=== PATIENT | female | born 1945 | race Caucasian/White ===

== ENCOUNTER → 2016-09-25 | Outpatient (CLI) | payer BC | END | disposition home or self-care (01) | LOC: PCVCIMAG 07:58 | PROVIDERS: ATTEND Internal Medicine | DX: I44.7 Left bundle-branch block, unspecified (principal); I08.2 Rheumatic disorders of both aortic and tricuspid valves; R55 Syncope and collapse | CPT/HCPCS: 93306 ==

== ENCOUNTER → 2017-02-02 | Outpatient (CLI) | payer BC | END | disposition home or self-care (01) | LOC: PCVCCLINIC 11:44 | PROVIDERS: ATTEND Internal Medicine | DX: I44.2 Atrioventricular block, complete (principal); E78.5 Hyperlipidemia, unspecified; I44.7 Left bundle-branch block, unspecified; I10 Essential (primary) hypertension; Z95.0 Presence of cardiac pacemaker; M81.0 Age-related osteoporosis without current pathological fracture; K21.9 Gastro-esophageal reflux disease without esophagitis; M19.90 Unspecified osteoarthritis, unspecified site; Z79.82 Long term (current) use of aspirin; Z79.899 Other long term (current) drug therapy; Z96.653 Presence of artificial knee joint, bilateral; Z88.2 Allergy status to sulfonamides; Z88.8 Allergy status to other drugs, medicaments and biological substances | CPT/HCPCS: 80061; 93005; G0463 ==

== ENCOUNTER → 2017-08-04 | Outpatient (CLI) | payer BC | END | disposition home or self-care (01) | LOC: PCVCIMAG 09:05 | DX: I10 Essential (primary) hypertension (principal); I44.7 Left bundle-branch block, unspecified; I44.2 Atrioventricular block, complete; E78.5 Hyperlipidemia, unspecified; Z95.0 Presence of cardiac pacemaker; Z79.899 Other long term (current) drug therapy; Z79.82 Long term (current) use of aspirin | CPT/HCPCS: 93005; 93306; G0463 ==

== ENCOUNTER → 2018-08-11 | Outpatient (CLI) | payer BC | END | disposition home or self-care (01) | LOC: PCVCCLINIC 11:03 | PROVIDERS: ATTEND Internal Medicine | DX: I44.2 Atrioventricular block, complete (principal); E78.5 Hyperlipidemia, unspecified; I44.7 Left bundle-branch block, unspecified; I10 Essential (primary) hypertension; C43.62 Malignant melanoma of left upper limb, including shoulder; Z95.0 Presence of cardiac pacemaker; Z88.1 Allergy status to other antibiotic agents; Z88.2 Allergy status to sulfonamides | CPT/HCPCS: 36415; 80061; 93005; 93280; G0463 ==

== ENCOUNTER → 2019-02-16 | Outpatient (CLI) | payer BC ==
--- NOTE | 2019-02-16 09:48 | PCVCIMAG ---
APPROVED REPORT Study performed: 02/16/2019 08:46:18 EXAM: Comprehensive 2D, Doppler, and color-flow Echocardiogram Patient Location: Echo lab Room #: 2Status: routine BSA: 1.87 HR: 65 bpmBP: 128/62 mmHg Rhythm: Pacemaker Other Information Study Quality: Good Risk Factors: Cardiac Risk Factors: HTN, Hyperlipidemia Indications Pacemaker Hypertension/HDD Complete heart block 2D Dimensions IVSd: 9.19 (7-11mm)LVOT Diam: 17.10 (18-24mm) LVDd: 42.44 mm PWd: 7.45 (7-11mm)Ascending Ao: 25.09 (22-36mm) LVDs: 21.79 (25-40mm) Left Atrium: 30.40 (27-40mm) Aortic Root: 22.26 mm LV Single Plane 4CH: 54.71 % LV Single Plane 2CH: 61.47 % Biplane EF: 57.7 % Volumes Left Atrial Volume (Systole) Single Plane 4CH: 40.72 mLSingle Plane 2CH: 58.53 mL Biplane LA Volume: 49.00 mLLA ESV Index: 26.00 mL/m2 Aortic Valve AoV Peak Ivan.: 1.54 m/s AO Peak Gr.: 9.49 mmHgLVOT Max P.40 mmHg LVOT Max V: 0.92 m/s ALEXANDRU Vmax: 1.38 cm2 Mitral Valve E/A Ratio: 0.8 MV Decel. Time: 165.26 ms MV E Max Ivan.: 0.84 m/s MV A Ivan.: 1.08 m/s TDI E/Lateral E': 10.50E/Medial E': 14.00 Medial E' Ivan.: 0.06 m/s Lateral E' Ivan.: 0.08 m/s Pulmonary Valve PV Peak Ivan.: 1.48 m/sPV Peak Gr.: 8.76 mmHg Pulmonary Vein P Vein S: 0.86 m/sP Vein A: 0.31 m/s P Vein D: 0.34 m/sP Vein A Dur.: 103.8 msec P Vein S/D Ratio: 2.53 Tricuspid Valve TR Peak Ivan.: 3.27 m/s TR Peak Gr.: 42.86 mmHg TV Vmax: 0.72 m/sPA Pressure: 50.00 mmHg Left Ventricle The left ventricle is normal size. There is normal LV segmental wall motion. There is normal left ventricular wall thickness. Left ventricular systolic function is normal. The left ventricular ejection fraction is within the normal range. LVEF is 55-60%. Mild diastolic dysfunction is present (impaired relaxation pattern). Right Ventricle The right ventricle is normal size. The right ventricular systolic function is normal. Pacemaker lead is present in the right ventricle. Atria The left atrium size is normal. Pacemaker lead is present in the right atrium. Aortic Valve Aortic valve is trileaflet. No aortic regurgitation is present. There is no aortic valvular stenosis. Mitral Valve Mild mitral annular calcification There is no mitral valve regurgitation noted. No evidence of mitral valve stenosis. Tricuspid Valve The tricuspid valve is normal in structure. Mild to moderate tricuspid regurgitation with a PA pressure of 45 mmHg. Moderate pulmonary hypertension. Pulmonic Valve The pulmonary valve is normal in structure. There is no pulmonic valvular regurgitation. Great Vessels The aortic root is normal in size. The ascending aorta is normal in size. Aortic arch is normal in caliber. IVC is normal in size and collapses >50% with inspiration. Pericardium There is no pericardial effusion. There is no pleural effusion. <Conclusion> Left ventricular systolic function is normal. There is normal LV segmental wall motion. LVEF is 55-60%. Mild diastolic dysfunction Aortic valve is trileaflet. No stenosis or insufficiency. Mild mitral annular calcification. No mitral valve regurgitation. Mild to moderate tricuspid regurgitation with a pulmonary artrery pressure of 45 mmHg. There is no pericardial effusion.
== END | disposition home or self-care (01) ==
LOC: PCVCIMAG 08:41
PROVIDERS: ATTEND Internal Medicine
DX: I07.1 Rheumatic tricuspid insufficiency (principal); I44.2 Atrioventricular block, complete; I10 Essential (primary) hypertension; Z88.1 Allergy status to other antibiotic agents
CPT/HCPCS: 93306